=== PATIENT | male | born 1960 | race Caucasian/White ===

== ENCOUNTER 2018-06-04 08:13 | Emergency (ER) | payer MEDICARE ==
[2018-06-04] MEDS ORDERED: Acetaminophen 325 MG TAB ONE (08:39)
[2018-06-04] MEDS ORDERED: HYDROcodone/Acetaminophen 10/325 mg Tablet ONE (08:39)
--- NOTE | 2018-06-04 09:11 | RAD ---
RIGHT WRIST THREE VIEWS: HISTORY: Wrist injury. FINDINGS: There are arthritic changes of the first carpometacarpal joint space and some degenerative changes of some of the DIP joints. There is deformity of the tuft of the distal phalanx of the ring finger, co nsistent with old injury. There are no signs of acute trauma. IMPRESSION: No acute injury. POS: [facility]
== END 2018-06-04 09:20 | disposition home or self-care (01) ==
LOC: MADERS 08:13
DX: S63.601A Unspecified sprain of right thumb, initial encounter (principal); I48.91 Unspecified atrial fibrillation; I10 Essential (primary) hypertension; F17.220 Nicotine dependence, chewing tobacco, uncomplicated; V69.9XXA Occupant (driver) (passenger) of heavy transport vehicle injured in unspecified traffic accident, initial encounter